=== PATIENT | male | born 1985 | race Caucasian/White ===

== ENCOUNTER 2025-01-05 03:10 | Emergency (ER) | payer BC ==
[2025-01-05] MEDS: Bacitracin Oint 1 GM U/D Packet TOP ONE (03:51)
[2025-01-05] MEDS: Lidocaine 1% with EPINEPHrine 1:100,000 20 ML MDV INJECT ONE (03:51)
== END 2025-01-05 04:14 | disposition home or self-care (01) ==
LOC: JP.ED 03:10
DX: S51.812A Laceration without foreign body of left forearm, initial encounter (principal); W26.0XXA Contact with knife, initial encounter
CPT/HCPCS: 12031; 99282; J2004